=== PATIENT | female | born 1960 | race American Indian/Alaskan Native ===

== ENCOUNTER 2017-04-03 07:34 | Day surgery (SDC) | payer MEDICAID ==
[2017-04-03] MEDS ORDERED: Lactated Ringers 1,000 ML IV SCH (08:15)
[2017-04-03] MEDS ORDERED: Propofol 200 MG/20 ML SDV ONE ×3 (08:43→09:27)
[2017-04-03] MEDS ORDERED: fentaNYL 100 MCG/2 ML SDV ONE (08:43)
[2017-04-03] MEDS ORDERED: Midazolam 1 MG/ML 2 ML SDV ONE (08:43)
--- NOTE | 2017-04-03 11:01 | OR ---
DATE OF PROCEDURE: 04/03/2017 PREOPERATIVE DIAGNOSIS: Anemia. POSTOPERATIVE DIAGNOSES: 1. Anemia, etiology unknown. 2. Unremarkable upper endoscopy. 3. Colonic diverticulosis. PROCEDURE PERFORMED: Esophagogastroduodenoscopy and colonoscopy to the cecum. SURGEON: Ru Tavares MD. ANESTHESIA: Intravenous. INDICATION: This 56-year-old black female is referred for upper and lower endoscopy because of anemia. She says, she previously has been studied well over a year ago in [place]. I counseled her for upper and lower endoscopy including risks and alternatives, and she gave her informed consent to proceed. DESCRIPTION OF PROCEDURE: The patient was placed in the left lateral decubitus position. IV anesthesia was administered by the Anesthesia Service. Time-out was held. The flexible video Olympus upper endoscope was passed through her mouth, down her esophagus, and into her stomach. The scope was easily passed through the pylorus into the duodenum , reaching its third portion. The scope was then slowly withdrawn examining the mucosa throughout. The duodenal mucosa appeared unremarkable. The scope was brought back through the pylorus into the antrum. The antrum appeared unremarkable. The scope was retroflexed. The proximal stomach appeared unremarkable. The scope was straightened and brought up through the GE junction. The GE junction appeared unremarkable. The scope was then brought up through the unremarkable appearing esophagus and was removed. We saw no evidence of any old or new blood or anything that we would expect to bleed in the upper gastrointestinal tract. Next a rectal exam was performed, which was unremarkable. The flexible video Olympus colonoscope was introduced through her anus, up her rectum, out her colon all way to the cecum. En route, we saw a few scattered, both right and left-sided, diverticula. There was no bleeding or inflammation associated with any of them. The prep was fairly poor. Once the cecum was reached, the scope was slowly withdrawn, examining the mucosa throughout. The visualized mucosa other than the diverticula appeared unremarkable. We encountered no old or new blood anywhere in the lower gastrointestinal tract. In the rectum, the scope was retroflexed with the distal rectum appeared unremarkable. The scope was straightened and removed. She tolerated the procedure well. Ru Tavares MD /[id number] [facility]
== END 2017-04-03 10:42 | disposition home or self-care (01) ==
LOC: JP.SDS 07:34
PROVIDERS: ATTEND Surgery
DX: K57.30 Diverticulosis of large intestine without perforation or abscess without bleeding (principal); D64.9 Anemia, unspecified; I10 Essential (primary) hypertension; F41.9 Anxiety disorder, unspecified; F32.9 Major depressive disorder, single episode, unspecified; E66.9 Obesity, unspecified; K21.9 Gastro-esophageal reflux disease without esophagitis; F17.210 Nicotine dependence, cigarettes, uncomplicated
CPT/HCPCS: 43235; 45378; J2250; J2704; J3010; J7120